=== PATIENT | male | born 1960 | race Caucasian/White ===

== ENCOUNTER → 2018-03-19 | Outpatient (CLI) | payer BC ==
[2018-03-19] MEDS: SOD CHLORIDE 0.9% 100 ML (09:54)
[2018-03-19] MEDS: IOHEXOL 300MG/ML 150 ML BTL (10:00)
== END | disposition home or self-care (01) ==
LOC: C/S 08:58
DX: D38.1 Neoplasm of uncertain behavior of trachea, bronchus and lung (principal)
CPT/HCPCS: 71260